=== PATIENT | female | born 1965 | race Caucasian/White ===

== ENCOUNTER → 2021-09-17 | Outpatient (CLI) | payer SELFPAY ==
[~2021-09-17] MED LIST: CHOL10002; CLOB.05TC TOP; Calcium 500 MG1 EACH; Multiple Vitam1 EAC1 PO; Vitamin C1000 M1
[2021-09-21 17:11] LABS: HPV 16 Negative (Negative); HPV 18 Negative (Negative); HPV OTHER HR TYPES Negative (Negative)
== END ==
LOC: LAB 08:17 → LAB SHORT 08:17
PROVIDERS: Internal Medicine
DX: Z12.4 Encounter for screening for malignant neoplasm of cervix (principal)
CPT/HCPCS: 87624; G0145